=== PATIENT | female | born 1930 | race Caucasian/White ===

== ENCOUNTER 2017-09-18 21:43 | Inpatient (IN) | payer MEDICARE, MEDICAID ==
--- NOTE | 2017-09-18 22:09 | ED Physician Chart ---
ED Chief Complaint/HPI - Patient Information Date Seen:: 09/18/17 Time Seen:: 21:40 Chief Complaint:: Agitation History of Present Illness:: onset x 3 days of agitaation and aggressive behavior; no report of trauma, SIs, H/As, S/T, neck pain, C/P, SOB, Abd. pain, A/N/V/D/C, fever, chills, or urinary s/s Historian:: Patient, EMS Review:: Nurse's Note Reviewed, Old Chart Reviewed, EMS run form Reviewed ED Review of Systems - Review of Systems General/Constitutional: No fever, No chills, No weight loss, No weakness, No diaphoresis, No edema, No loss of appetite Skin: No skin lesions, No rash, No bruising Head: No headache, No light-headedness Eyes: No loss of vision, No pain, No diplopia ENT: No earache, No nasal drainage, No sore throat, No tinnitus Neck: No neck pain, No swelling, No thyromegaly, No stiffness, No mass noted Cardio Vascular: No chest pain, No palpitations, No PND, No orthopnea, No edema Pulmonary: No SOB, No cough, No sputum, No wheezing GI: No nausea, No vomiting, No diarrhea, No pain, No melena, No hematochezia, No constipation, No hematemesis G/U: No dysuria, No frequency, No hematuria, No nacturia Pass Worker: No vaginal discharge, No abnormal vaginal bleed, No contraction Musculoskeletal: No bone or joint pain, No back pain, No muscle pain Endocrine: No polyuria, No polydipsia Psychiatric: Prior psych history, Depression, Anxiety, No suicidal ideation, No homicidal ideation, No auditory hallucination, No visual hallucination Hematopoietic: No bruising, No lymphadenopathy Allergic/Immuno: No urticaria, No angioedema Neurological: No syncope, No focal symptoms, No weakness, No paresthesia, No headache, No seizure, No dizziness, Confusion, No vertigo ED Past Medical History - Past Medical History Obtainable: Yes Past Medical History: HTN, CAD, Dyslipidemia, Dementia Family History: Diabetes Melitus, HTN Social History: Non Smoker, No Alcohol, No Drug Use, Single, Care Facility Surgical History: None Psychiatricy History: Depression, Bipolar, Dementia Medication: Reviewed Family Medical History - Family Member Mother History Unknown: Yes ED Physical Exam - Physical Examination General/Constitutional: Awake, Well-developed, well-nourished, Alert, No distress, GCS 15, Non-toxic appearing, Ambulatory Head: Atraumatic Eyes: Lids, conjuctiva normal, PERRL, EOMI Skin: Nl inspection, No rash, No skin lesions, No ecchymosis, Well hydrated, No lymphadenopathy ENMT: External ears, nose nl, TM canals nl, Nasal exam nl, Lips, teeth, gums nl , Oropharynx nl, Tonsils nl Neck: Nontender, Full ROM w/o pain, No JVD, No nuchal rigidity, No bruit, No mass, No stridor Respiratory: Nl effort/Exclusion, Clear to Auscultation, No Wheeze/Rhonchi/Rales Cardio Vascular: RRR, No murmur, gallop, rubs, NL S1 S2, Carotid/Femoral/Distal pulses equal bilaterally GI: No tenderness/rebounding/guarding, No organomegaly, No hernia, Normal BS's, Nondistended, No mass/bruits, No McBurney tenderness : No CVA tenderness Extremities: No tenderness or effusion, Full ROM, normal strength in all extremities, No edema, Normal digits & nails Neuro/Psych: Alert/oriented, DTR's symmetric, Normal sensory exam, Normal motor strength, Judgement/insight normal, Mood normal, Normal gait, No focal deficits Other Neuro/Psych comments:: + Psychomotor Agitation; no SIs; Mood/Affect: Stable Misc: Normal back, No paraspinal tenderness ED Labs/Radiology/EKG Results - Lab Results Comments:: K+: 3.4 - EKG Interpretations EKG Time:: 22:11 Rate & Rhythm: 63; NSR Comments:: LBBB; non-specific st-t changes ED Septic Shock - . Is Septic Shock (SBP<90, OR Lactate>4 mmol\L) present?: No ED Reassessment (Disposition) - Reassessment Reassessment Condition:: Improved - Diagnosis Diagnosis:: Hypokalemia; Medical Clearance; Agitation; Bipolar Disorder; Psychosis - Aftercare/Follow up Instructions Aftercare/Follow-Up Instructions:: Counseled pt regarding lab results/diagnosis & need follow up, Counseled pt & family regarding lab results/diagnosis & need follow up - Patient Disposition Discharge/Transfer:: Acute Care w/in this hosp Admitted to:: [facility] Condition at Disposition:: Stable, Improved
[2017-09-18 23:12] LABS: % BASOPHILS 0.2 % (0.0-2.0); % EOSINOPHILS 2.4 % (0.0-5.0); % LYMPHOCYTES 33.1 % (20.0-50.0); % MONOCYTES 11.6 % (2.0-10.0); % NEUTROPHILS 52.7 % (40.0-80.0); EOSINOPHILE ABSOLUTE 0.1 Th/cmm (0.1-0.4); HEMATOCRIT 36.8 % (41.0-60); HEMOGLOBIN 12.5 gm/dL (12-16); LYMPHOCYTE ABSOLUTE 1.6 Th/cmm (1.5-3.0); MEAN CELL VOLUME 89.1 fl (81-100); MEAN CORPUSCULAR HEMOGLOBIN 30.1 pg (27.0-31.0); MEAN CORPUSCULAR HGB CONC 33.8 pg (28.0-36.0); MONOCYTE ABSOLUTE 0.5 Th/cmm (0.3-1.0); NEUTROPHILE ABSOLUTE 2.5 Th/cmm (1.8-8.0); PLATELET COUNT 201 Th/cmm (150-400); RED BLOOD COUNT 4.13 Mil/cmm (3.80-5.20); RED CELL DISTRIBUTION WIDTH 14.1 % (11.5-20.0); WHITE BLOOD COUNT 4.7 Th/cmm (4.8-10.8)
[2017-09-18 23:36] LABS: ACETAMINOPHEN < 10.0 ug/mL (10.0-30.0); ALB/GLOB RATIO 1.8 (1.0-1.8); ALBUMIN 3.8 gm/dL (3.7-5.3); ALKALINE PHOSPHATASE 116 U/L (34-104); ANION GAP 11.8 (7.0-16.0); BILIRUBIN,TOTAL 0.7 mg/dL (0.3-1.0); BUN - UREA NITROGEN 22 mg/dL (7-25); CARBON DIOXIDE 26.6 mEq/L (21.0-31.0); CHLORIDE 107 mEq/L (98-107); CHOLESTEROL 165 mg/dL (<200); CREATININE - SERUM 0.6 mg/dL (0.6-1.2); GLUCOSE 103 mg/dL (70-105); HDL -HIGH DENSITY LIPOPROTEIN 75 mg/dL (23-92); POTASSIUM SERUM 3.4 mEq/L (3.5-5.1); SALICYLATES (ASPIRIN) < 25.0 mg/L (30.0-100.0); SGOT 11 U/L (13-39); SGPT/ALT 3 U/L (7-52); SODIUM SERUM 142 mEq/L (136-145); TOTAL PROTEIN,SERUM 5.9 gm/dL (6.0-8.3); TRIGLYCERIDES 37 mg/dL (<150)
[2017-09-18] MEDS ORDERED: Potassium Chloride 20 mEq ER Tab PO ONE (23:42)
[2017-09-19 00:48] VITALS: BP 134/64
[2017-09-19] MEDS ORDERED: Magnesium Hydroxide (MOM) 30 mL UDC PO PRN (00:57)
[2017-09-19] MEDS ORDERED: Non-Formulary Item 1 EA (Ipratropium Bromide [Atrovent Hfa] 2 PUFF) INH PRN (00:57)
[2017-09-19 19:52] LABS: A1C % 5.1 % (4.0-6.0)
[2017-09-19] MEDS ORDERED: PIMAVANSERIN TARTRATE PO SCH (21:00)
--- NOTE | 2017-09-20 05:55 | Psychosocial Evaluation ---
DATE OF SERVICE: 09/18/2017 IDENTIFYING DATA: The patient is an 86-year-old woman, resident of [facility]. Information obtained directly interviewing the patient as well as reviewing the admission paper. JUSTIFICATION OF HOSPITALIZATION: The patient has been admitted over here for acute confusion and striking out, refusing to follow the directions and hence the patient has been referred over here for stabilization. Chart is reviewed. The patient is interviewed. The patient is stating that she has been diagnosed to have Parkinson's and has been having the deformities of her hand and she states that there is no reason for her to hurt anyone and she could not figure it out that she is in the hospital now. PAST PSYCHIATRIC HISTORY: Details are not known. MEDICAL HISTORY AND PHYSICAL EXAMINATION: Requested done by Dr. Juan. SUBSTANCE ABUSE HISTORY: None. STRENGTH AND ASSETS: The patient is motivated. MENTAL STATUS EXAMINATION: The patient is an 86-year-old woman, thin built, cooperative. Eye contact is fair. Mood is noted to be depressed. Affect is constricted. Coping skills are noted to be poor. Insight and judgment are noted to be impaired. Impulse control is a little bit poor. The patient is downplaying her agitation. The patient is, however, feeling depressed because of these deformities that she has been having and need to cope with them. The patient is stating that she is in pain and needs some medications to help her with the pain at this time. The patient is alert and oriented x 3 and the patient is fully aware that she is in the hospital. Short term memory is noted to be poor. 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 DIAGNOSTIC IMPRESSION: AXIS I: Major depressive disorder, recurrent and moderate. AXIS II: None. AXIS III: As per Dr. Juan. IMMEDIATE TREATMENT PLAN: The patient is going to be observed on inpatient unit for supportive psychotherapy. The patient is going to be encouraged to participate in the groups and verbalize the concerns. Once stabilized, the patient is going to be discharged to [facility]. The patient is going to be continued on her Celexa at this time. JOB# [id number]
[2017-09-20] MEDS ORDERED: Ipratropium Neb 0.5 mg/2.5 mL UD HHN PRN ×2 (11:29→11:45)
--- NOTE | 2017-09-20 23:49 | History & Physical ---
ADMIT DATE: 09/20/2017 REASON FOR ADMISSION: Psychiatric disorder. HISTORY OF PRESENT ILLNESS: This is an 86-year-old female with underlying history of hypertension, seizure disorder, hyperlipidemia, Parkinson's disease, who lives at retirement facility, was admitted to Geropsych Unit for underlying psychiatric illness by Dr. Baxter. Dr. Baxter requested medical H and P on this patient. PAST MEDICAL HISTORY: As per HPI. PAST SURGICAL HISTORY: No significant past surgical history reported. SOCIAL HISTORY: Lives in retirement. No reported alcohol, tobacco or street drug use. CURRENT MEDICATIONS: On Ambien, tramadol, senna, Nitrostat, milk of mag, Ativan, Keppra, DuoNeb, Lopid, Colace, Celexa, Lotensin, carbidopa/levodopa, vitamin C, Norvasc and amantadine. REVIEW OF SYSTEMS: The patient denies any fever, no chills, no nausea, no vomiting, no headache, no diarrhea, no abdominal pain, no constipation, no diarrhea, no hematemesis, no melena. PHYSICAL EXAMINATION: VITAL SIGNS: Temperature 98.5, pulse 75, respirations 19, blood pressure 118/67, 99% on room air. Pain 0/10. GENERAL APPEARANCE: The patient does not seem to be in acute distress. CARDIOVASCULAR: S1 and S2 normal. LUNGS: Clear to auscultation bilaterally. ABDOMEN: Soft, nontender. NEUROLOGIC: Awake, but confused. Moves all extremities. Both hand contracture noted. AVAILABLE LABORATORY DATA: Has been reviewed. ASSESSMENT: 1. Hypertension. 2. Hyperlipidemia. 3. Parkinson's disease. 4. Seizure disorder. 5. Mental disorder. PLAN: The patient will be continued on current treatment plan. Psych evaluation per psychiatrist. Monitor vitals. ____ aspiration precautions. Plan of care discussed with nursing staff. Thank you Dr. Baxter for allowing me to participate in the care of this patient. JOB# [id number]
--- NOTE | 2017-09-21 08:53 | Progress Notes ---
DATE: 09/20/2017 PSYCHIATRIC PROGRESS NOTE SUBJECTIVE: Staff was spoken to. The patient is interviewed. Mood is noted to be depressed. Affect is constricted. Coping skills are noted to be poor. The patient is isolative and withdrawn. Insight and judgment at this time are noted to be still impaired. Impulse control is noted to be limited. The patient has been living herself after being in here and she states that she has never tried to hurt anyone, could not feel it out why she has to be here. ASSESSMENT: The patient is depressed. PLAN: To continue the patient with supportive therapy. Encouraged the patient to verbalize the concerns rather than to act out. JOB# [id number]
--- NOTE | 2017-09-21 16:41 | Progress Notes ---
DATE: 09/21/2017 SUBJECTIVE: Staff was spoken to. The patient is interviewed. Mood is very depressed. Affect is constricted. The patient is stating that she would not feel it out that she ended up in the hospital like this and she states that she has been having pain in her upper extremities. Coping skills are noted to be poor at this time. No side effects to the medications are noted. ASSESSMENT: The patient is still depressed. PLAN: To continue the patient with the Celexa and follow her up with supportive therapy. [facility]# [id number]
--- NOTE | 2017-09-22 16:13 | Progress Notes ---
DATE: 09/22/2017 SUBJECTIVE: Staff was spoken to. The patient is interviewed. Mood is noted to be anxious and depressed. Affect is constricted. Coping skills are noted to be still poor. The patient feels frustrated. The patient has been having multiple deformities in her upper extremities. ASSESSMENT: The patient is still depressed. PLAN: To continue the patient with the supportive therapy and followup. [facility]# [id number]
--- NOTE | 2017-09-22 18:00 | Consultation ---
DATE OF CONSULTATION: 09/20/2017 REQUESTING PHYSICIAN: Rema Baxter M.D. TYPE OF CONSULTATION: Psychology. HISTORY OF PRESENT ILLNESS: The patient is an 86-year-old female. The patient is a resident of [facility]. The patient is being admitted for confusion and poor behavioral re-directability. The staff at the patient's facility reports that she had been striking out at staff members. The following is by review of the medical record and by the patient's self report. Upon interview, the patient states that she has Parkinson's disease and that she believes her hands are deformed secondary to this illness. The patient presents as confused. She denied any suicidal ideation, plan, or intention. PAST MEDICAL HISTORY: Please see history and physical by Dr. Juan. PAST PSYCHIATRIC HISTORY: Unavailable at this time. SUBSTANCE ABUSE HISTORY: None. CURRENT MEDICATIONS: Please see admission medication reconciliation. PSYCHOSOCIAL HISTORY: The patient is a resident of [facility]. The patient did not answer questions about family history or occupational history or educational history: The patient did not answer questions about abuse history or any legal problems or mormonism affiliation. MENTAL STATUS EXAMINATION: The patient appears to be her stated age, but presents as frail. The patient's attitude is cooperative. Eye contact is fair. Speech is spontaneous. Mood is depressed. Affect is mood congruent. The patient reports that she feels depressed due to her medical condition and the deformities in her hands. The patient denied any suicidal ideation, plan or intention, or any wish to . The patient denied any hallucinations or delusions. Impulse control is poor. Sensorium is alert and oriented to person, place, and date. The patient continued to complain about pain throughout the clinical interview. The patient was unable to recall any of the 3 items given to her after several minutes. Short term memory is impaired. Concentration is fair to poor. Long-term memory seems to be fair. The patient did not participate in the interpretation of proverbs. Insight is fair to poor. Judgment is compromised. DIAGNOSTIC IMPRESSION: AXIS I: Major depressive disorder, recurrent, moderate. AXIS II: Deferred. AXIS III: Please see history and physical by Dr. Juan. PLAN: The patient has been seen by Dr. Baxter for psychiatric evaluation and for the management of the patient's psychotropic medications. We will provide supportive psychotherapy. We will provide cognitive behavioral therapy to decrease the patient's depression and encourage her to verbalize her concerns. We will provide coping strategies for phase of life issues as well as adjustment to the patient's current concerns about her medical condition. Thank you Dr. Baxter for this consult and the opportunity to participate in this patient's care. JOB# [id number] [facility]
--- NOTE | 2017-09-23 22:00 | General Progress Note ---
Subjective - Review of Systems Service Date: 09/23/17 Subjective: Patient seen and examined c/o bilateral hand pain Objective - Results Result Diagrams: 09/18/17 22:51 09/18/17 22:51 Recent Labs: Laboratory Last Values WBC 4.7 Th/cmm (4.8-10.8) L 09/18/17 22:51 RBC 4.13 Mil/cmm (3.80-5.20) 09/18/17 22:51 Hgb 12.5 gm/dL (12-16) 09/18/17 22:51 Hct 36.8 % (41.0-60) L 09/18/17 22:51 MCV 89.1 fl (81-100) 09/18/17 22:51 MCH 30.1 pg (27.0-31.0) 09/18/17 22:51 MCHC Differential 33.8 pg (28.0-36.0) 09/18/17 22:51 RDW 14.1 % (11.5-20.0) 09/18/17 22:51 Plt Count 201 Th/cmm (150-400) 09/18/17 22:51 MPV 9.0 fl 09/18/17 22:51 Neutrophils % 52.7 % (40.0-80.0) 09/18/17 22:51 Lymphocytes % 33.1 % (20.0-50.0) 09/18/17 22:51 Monocytes % 11.6 % (2.0-10.0) H 09/18/17 22:51 Eosinophils % 2.4 % (0.0-5.0) 09/18/17 22:51 Basophils % 0.2 % (0.0-2.0) 09/18/17 22:51 Sodium 142 mEq/L (136-145) 09/18/17 22:51 Potassium 3.4 mEq/L (3.5-5.1) L 09/18/17 22:51 Chloride 107 mEq/L (98-107) 09/18/17 22:51 Carbon Dioxide 26.6 mEq/L (21.0-31.0) 09/18/17 22:51 Anion Gap 11.8 (7.0-16.0) 09/18/17 22:51 BUN 22 mg/dL (7-25) 09/18/17 22:51 Creatinine 0.6 mg/dL (0.6-1.2) 09/18/17 22:51 Est GFR ( Amer) TNP 09/18/17 22:51 Est GFR (Non-Af Amer) TNP 09/18/17 22:51 BUN/Creatinine Ratio 36.7 09/18/17 22:51 Glucose 103 mg/dL (70-105) 09/18/17 22:51 Hemoglobin A1c % 5.1 % (4.0-6.0) 09/18/17 22:51 Calcium 10.0 mg/dL (8.6-10.3) 09/18/17 22:51 Total Bilirubin 0.7 mg/dL (0.3-1.0) 09/18/17 22:51 AST 11 U/L (13-39) L 09/18/17 22:51 ALT 3 U/L (7-52) L 09/18/17 22:51 Alkaline Phosphatase 116 U/L (34-104) H 09/18/17 22:51 Total Protein 5.9 gm/dL (6.0-8.3) L 09/18/17 22:51 Albumin 3.8 gm/dL (3.7-5.3) 09/18/17 22: Globulin 2.1 gm/dL 09/18/17 22:51 Albumin/Globulin Ratio 1.8 (1.0-1.8) 09/18/17 22:51 Triglycerides 37 mg/dL (<150) 09/18/17 22:51 Cholesterol 165 mg/dL (<200) 09/18/17 22:51 LDL Cholesterol Direct 76 mg/dL (75-193) 09/18/17 22:51 HDL Cholesterol 75 mg/dL (23-92) 09/18/17 22:51 TSH 1.83 uIU/ml (0.34-5.60) 09/18/17 22:51 Salicylates < 25.0 mg/L (30.0-100.0) L 09/18/17 22:51 Acetaminophen < 10.0 ug/mL (10.0-30.0) L 09/18/17 22:51 Ethyl Alcohol < 10 mg/dL (0-10) 09/18/17 22:51 RPR NONREACTIVE (NONREACTIVE) 09/18/17 22:51 - Physical Exam Vitals and I&O: Vital Signs Temp 96.6 F 09/23/17 20:44 Pulse 66 09/23/17 20:44 Resp 18 09/23/17 20:44 BP 132/58 09/23/17 20:44 Pulse Ox 97 09/23/17 20:44 Intake & Output 09/23/17 09/23/17 09/24/17 06:59 18:59 06:59 Intake Total 240 850 120 Balance 240 850 120 Intake: Oral 240 850 120 Other: # Voids 1 4 1 # Bowel Movements 1 Active Medications: Current Medications Amantadine HCl (Symmetrel) 100 mg PO BID RACHEAL Stop: 11/18/17 08:59 Last Admin: 09/23/17 17:47 Dose: 100 mg Amlodipine Besylate (Norvasc) 10 mg PO DAILY RACHEAL Stop: 11/18/17 08:59 Last Admin: 09/23/17 10:42 Dose: 10 mg Ascorbic Acid (Vitamin C) 500 mg PO DAILY RACHEAL Stop: 11/18/17 08:59 Last Admin: 09/23/17 10:43 Dose: 500 mg Benazepril HCl (Lotensin) 20 mg PO BID RACHEAL Stop: 11/18/17 08:59 Last Admin: 09/23/17 17:48 Dose: 20 mg Carbidopa/Levodopa (Sinemet 25mg-100 Mg) 2 tab PO QID RACHEAL Stop: 11/18/17 08:59 Last Admin: 09/23/17 21:06 Dose: 2 tab Citalopram Hydrobromide (Celexa) 10 mg PO DAILY RACHEAL Stop: 11/18/17 08:59 Last Admin: 09/23/17 10:43 Dose: 10 mg Docusate Sodium (Colace) 100 mg PO BID RACHEAL Stop: 11/18/17 08:59 Last Admin: 09/23/17 17:47 Dose: 100 mg Gemfibrozil (Lopid) 600 [facility] PO [facility]AC [facility] Stop: 11/18/17 07:29 Last Admin: 09/23/17 17:49 Dose: Not Given Ipratropium [place] (Atrovent Neb 0.5mg/2.5ml) 0.5 mg HHN Q6H PRN PRN Reason: Shortness of Breath Stop: 11/19/17 11:28 Levetiracetam (Keppra) 500 mg PO Q12HR RACHEAL Stop: 11/18/17 08:59 Last Admin: 09/23/17 21:06 Dose: 500 mg Lorazepam (Ativan) 0.5 mg PO Q4HR PRN; Protocol PRN Reason: Anxiety Stop: 10/19/17 00:48 Magnesium Hydroxide (Milk Of Magnesia) 30 ml PO HS PRN PRN Reason: Constipation Stop: 11/18/17 00:56 Nitroglycerin (Nitrostat) 0.4 mg SL TID PRN PRN Reason: Chest Pain Stop: 11/18/17 00:56 Senna (Senna) 8.6 mg PO BID RACHEAL Stop: 11/18/17 08:59 Last Admin: 09/23/17 17:48 Dose: Not Given Tramadol HCl (Ultram) 50 mg PO Q6H PRN PRN Reason: Pain (Moderate) Stop: 11/18/17 00:56 Last Admin: 09/22/17 09:07 Dose: 50 mg Zolpidem Tartrate (Ambien) 5 mg PO HS PRN PRN Reason: Insomnia Stop: 11/18/17 00:48 Last Admin: 09/21/17 21:01 Dose: 5 mg Cardiovascular: Regular rate Lungs: Clear to auscultation Assessment/Plan - Assessment Assessment: Parkinson disease Bilateral hand vargas Bilateral hand contracture HTN Hyperlipidemia Dementia Seizure disorder - Plan Plan: Pain meds as needed Continue current treatment Monitor vitals Psych follow up Nutritional Asmnt/Malnutr-PDOC - Dietary Evaluation Malnutrition Findings (Please click <Entered> for more info): Nutritional Asmnt/Malnutrition Start: 09/23/17 17: 09 Text: Status: Complete Freq: Document 09/23/17 17:09 LATIA (Rec: 09/23/17 17:14 JACLYN [email or web address]) Nutritional Asmnt/Malnutrition Patient General Information Nutritional Screening Moderate Risk Diagnosis psychosis Pertinent Medical Hx/Surgical Hx HTn, CAD, hyslipidemia, dementia, depression, bipolar Subjective Information Per EMR PO intake 75% Current Diet Order/ Nutrition Support pureed Pertinent Medications vit C, colace, senna Pertinent Labs 09/18 K 3.4 Nutritional Hx/Data Height 1.57 m Height (Calculated Centimeters) 157.5 Current Weight (lbs) 49.895 kg Weight (Calculated Kilograms) 49.9 Weight (Calculated Grams) 93978.2 Villalba Body Weight 110 % Villalba Body Weight 100 Body Mass Index (BMI) 20.1 Weight Status Approriate GI Symptoms GI Symptoms None Last BM 09/22 Difficult in: None Skin Integrity/Comment: dryness Current %PO Good (75-100%) Estimated Nutritional Goals BEE in Kcals: Using Current wt Calories/Kcals/Kg 25-30 Kcals Calculated 6995-3512 Protein: Using Current wt Protein g/k-1.2 Protein Calculated 50-60 Fluid: ml 1250-1500ml (1ml/kcal) Nutritional Problem No current Nutrition Prob Problem N/A Intervention/Recommendation Comments 1. Continue with current diet as ordered. 2. Monitor PO intake, wt, labs and skin integrity 3. F/U as low risk in 7 days, 09/30 Expected Outcomes/Goals Expected Outcomes/Goals 1. PO intake to meet at least 75% of nutritional needs. 2. Wt stability, skin to remain intact, labs to approach WNL.
--- NOTE | 2017-09-24 03:32 | Progress Notes ---
DATE: 09/23/2017 SUBJECTIVE: Staff was spoken to. The patient is interviewed. Mood is little bit depressed. Affect is constricted. The patient is isolative and withdrawn. Coping skills are noted to be very poor at this time. Sleep and appetite also noted to be very poor. The patient has been having difficult time to cope with the stress. No side effects to the medications are noted. The patient has been mainly focused on her pain. ASSESSMENT: The patient is still depressed. PLAN: To continue the patient with the supportive therapy. I encouraged the patient to verbalize the concerns rather than to act out. JOB# [id number]
--- NOTE | 2017-09-24 19:39 | Progress Notes ---
DATE: 09/24/2017 SUBJECTIVE: Staff was spoken to. The patient is interviewed. Mood is noted to be depressed. Affect is constricted. The patient is isolative and withdrawn. Mood is noted to be still depressed. Her sleep is noted to be improving. No side effects to the medications are noted. The patient, however, has been having difficult time with the pain. The patient is currently on tramadol on a p.r.n. basis. The patient is also receiving the citalopram 10 mg. ASSESSMENT: The patient is still depressed. PLAN: To continue the patient with the supportive therapy, encouraged the patient to verbalize the concerns rather than to act out. JOB# [id number]
--- NOTE | 2017-09-25 19:24 | Progress Notes ---
DATE: 09/25/2017 SUBJECTIVE: Staff was spoken to. The patient is interviewed. Mood is noted to be anxious. Affect is appropriate. The patient is stating that she has been doing fairly well and she has been able to sleep. No aggressive behavior is reported by the staff members. The patient is currently on citalopram 10 mg and has been able to tolerate the medication. The patient has been getting the Haldol for her pain and is able to tolerate. ASSESSMENT: The patient is stabilizing. PLAN: To closely monitor the patient for aggressive behavior and possibly discharge the patient for followup on outpatient basis tomorrow. JOB# [id number]
--- NOTE | 2017-09-26 21:35 | General Progress Note ---
Subjective - Review of Systems Service Date: 09/26/17 Subjective: Patient seen and examined denied any medical complaints Objective - Results Result Diagrams: 09/18/17 22:51 09/18/17 22:51 Recent Labs: Laboratory Last Values WBC 4.7 Th/cmm (4.8-10.8) L 09/18/17 22:51 RBC 4.13 Mil/cmm (3.80-5.20) 09/18/17 22:51 Hgb 12.5 gm/dL (12-16) 09/18/17 22:51 Hct 36.8 % (41.0-60) L 09/18/17 22:51 MCV 89.1 fl (81-100) 09/18/17 22:51 MCH 30.1 pg (27.0-31.0) 09/18/17 22:51 MCHC Differential 33.8 pg (28.0-36.0) 09/18/17 22:51 RDW 14.1 % (11.5-20.0) 09/18/17 22:51 Plt Count 201 Th/cmm (150-400) 09/18/17 22:51 MPV 9.0 fl 09/18/17 22:51 Neutrophils % 52.7 % (40.0-80.0) 09/18/17 22:51 Lymphocytes % 33.1 % (20.0-50.0) 09/18/17 22:51 Monocytes % 11.6 % (2.0-10.0) H 09/18/17 22:51 Eosinophils % 2.4 % (0.0-5.0) 09/18/17 22:51 Basophils % 0.2 % (0.0-2.0) 09/18/17 22:51 Sodium 142 mEq/L (136-145) 09/18/17 22:51 Potassium 3.4 mEq/L (3.5-5.1) L 09/18/17 22:51 Chloride 107 mEq/L (98-107) 09/18/17 22:51 Carbon Dioxide 26.6 mEq/L (21.0-31.0) 09/18/17 22:51 Anion Gap 11.8 (7.0-16.0) 09/18/17 22:51 BUN 22 mg/dL (7-25) 09/18/17 22:51 Creatinine 0.6 mg/dL (0.6-1.2) 09/18/17 22:51 Est GFR ( Amer) TNP 09/18/17 22:51 Est GFR (Non-Af Amer) TNP 09/18/17 22:51 BUN/Creatinine Ratio 36.7 09/18/17 22:51 Glucose 103 mg/dL (70-105) 09/18/17 22:51 Hemoglobin A1c % 5.1 % (4.0-6.0) 09/18/17 22:51 Calcium 10.0 mg/dL (8.6-10.3) 09/18/17 22:51 Total Bilirubin 0.7 mg/dL (0.3-1.0) 09/18/17 22:51 AST 11 U/L (13-39) L 09/18/17 22:51 ALT 3 U/L (7-52) L 09/18/17 22:51 Alkaline Phosphatase 116 U/L (34-104) H 09/18/17 22:51 Total Protein 5.9 gm/dL (6.0-8.3) L 09/18/17 22:51 Albumin 3.8 gm/dL (3.7-5.3) 09/18/17 22:51 Globulin 2.1 gm/dL 09/18/17 22:51 Albumin/Globulin Ratio 1.8 (1.0-1.8) 09/18/17 22:51 Triglycerides 37 mg/dL (<150) 09/18/17 22:51 Cholesterol 165 mg/dL (<200) 09/18/17 22:51 LDL Cholesterol Direct 76 mg/dL (75-193) 09/18/17 22:51 HDL Cholesterol 75 mg/dL (23-92) 09/18/17 22:51 TSH 1.83 uIU/ml (0.34-5.60) 09/18/17 22:51 Salicylates < 25.0 mg/L (30.0-100.0) L 09/18/17 22:51 Acetaminophen < 10.0 ug/mL (10.0-30.0) L 09/18/17 22:51 Ethyl Alcohol < 10 mg/dL (0-10) 09/18/17 22:51 RPR NONREACTIVE (NONREACTIVE) 09/18/17 22:51 - Physical Exam Vitals and I&O: Vital Signs Temp 97.6 F 09/26/17 20:00 Pulse 74 09/26/17 20:00 Resp 20 09/26/17 20:00 BP 138/74 09/26/17 20:00 Pulse Ox 97 09/26/17 20:00 Intake & Output 09/26/17 09/26/17 09/27/17 06:59 18:59 06:59 Intake Total 120 240 Balance 120 240 Intake: Oral 120 240 Other: # Voids 3 3 Active Medications: Current Medications Amantadine HCl (Symmetrel) 100 mg PO BID RACHEAL Stop: 11/18/17 08:59 Last Admin: 09/26/17 17:10 Dose: 100 mg Amlodipine Besylate (Norvasc) 10 mg PO DAILY [facility]HEAL Stop: 11/18/17 08:59 Last Admin: 09/26/17 08:53 Dose: 10 mg Ascorbic Acid (Vitamin C) 500 mg PO DAILY [facility] Stop: 11/18/17 08:59 Last Admin: 09/26/17 08:54 Dose: 500 mg Benazepril HCl (Lotensin) 20 mg PO BID RACHEAL Stop: 11/18/17 08:59 Last Admin: 09/26/17 17:10 Dose: 20 mg Carbidopa/Levodopa (Sinemet 25mg-100 Mg) 2 tab PO QID RACHEAL Stop: 11/18/17 08:59 Last Admin: 09/26/17 20:18 Dose: 2 tab Citalopram Hydrobromide (Celexa) 20 mg PO DAILY [facility] Stop: 11/25/17 19:16 Docusate Sodium (Colace) 100 mg PO BID RACHEAL Stop: 11/18/17 08:59 Last Admin: 09/26/17 17:11 Dose: 100 mg Gemfibrozil (Lopid) 600 mg PO BIDAC [facility] Stop: 11/18/17 07:29 Last Admin: 09/26/17 17:11 Dose: 600 mg Ipratropium [place] (Atrovent Neb 0.5mg/2.5ml) 0.5 mg HHN Q6H PRN PRN Reason: Shortness of Breath Stop: 11/19/17 11:28 Last Admin: 09/26/17 00:07 Dose: 0.5 mg Levetiracetam (Keppra) 500 mg PO Q12HR RACHEAL Stop: 11/18/17 08:59 Last Admin: 09/26/17 20:18 Dose: 500 mg Lorazepam (Ativan) 0.5 mg PO Q4HR PRN; Protocol PRN Reason: Anxiety Stop: 10/19/17 00:48 Magnesium Hydroxide (Milk Of Magnesia) 30 ml PO HS PRN PRN Reason: Constipation Stop: 11/18/17 00:56 Nitroglycerin (Nitrostat) 0.4 mg SL TID PRN PRN Reason: Chest Pain Stop: 11/18/17 00:56 Last Admin: 09/25/17 23:52 Dose: 0.4 mg Senna (Senna) 8.6 mg PO BID RACHEAL Stop: 11/18/17 08:59 Last Admin: 09/26/17 17:10 Dose: 8.6 mg Tramadol HCl (Ultram) 50 mg PO Q6H PRN PRN Reason: Pain (Moderate) Stop: 11/18/17 00:56 Last Admin: 09/26/17 00:38 Dose: 50 mg Zolpidem Tartrate (Ambien) 5 mg PO HS PRN PRN Reason: Insomnia Stop: 11/18/17 00:48 Last Admin: 09/21/17 21:01 Dose: 5 mg Cardiovascular: Regular rate Lungs: Clear to auscultation Assessment/Plan - Assessment Assessment: Parkinson disease Bilateral hand vargas Bilateral hand contracture HTN Hyperlipidemia Dementia Seizure disorder - Plan Plan: Pain meds as needed Continue current treatment Monitor vitals Psych follow up Nutritional Asmnt/Malnutr-PDOC - Dietary Evaluation Malnutrition Findings (Please click <Entered> for more info): Nutritional Asmnt/Malnutrition Start: 09/23/17 17: 09 Text: Status: Complete Freq: Document 09/23/17 17:09 LATIA (Rec: 09/23/17 17:14 [email or web address]) Nutritional Asmnt/Malnutrition Patient General Information Nutritional Screening Moderate Risk Diagnosis psychosis Pertinent Medical Hx/Surgical Hx HTn, CAD, hyslipidemia, dementia, depression, bipolar Subjective Information Per EMR PO intake 75% Current Diet Order/ Nutrition Support pureed Pertinent Medications vit C, colace, senna Pertinent Labs 09/18 K 3.4 Nutritional Hx/Data Height 1.57 m Height (Calculated Centimeters) 157.5 Current Weight (lbs) 49.895 kg Weight (Calculated Kilograms) 49.9 Weight (Calculated Grams) 41809.2 [place] Body Weight 110 % [place] Body Weight 100 Body Mass Index (BMI) 20.1 Weight Status Approriate GI Symptoms GI Symptoms None Last BM 4/ Difficult in: None Skin Integrity/Comment: dryness Current %PO Good (75-100%) Estimated Nutritional Goals BEE in Kcals: Using Current wt Calories/Kcals/Kg 25-30 Kcals Calculated 2220-1617 Protein: Using Current wt Protein g/k-1.2 Protein Calculated 50-60 Fluid: ml 1250-1500ml (1ml/kcal) Nutritional Problem No current Nutrition Prob Problem N/A Intervention/Recommendation Comments 1. Continue with current diet as ordered. 2. Monitor PO intake, wt, labs and skin integrity 3. F/U as low risk in 7 days, 09/30 Expected Outcomes/Goals Expected Outcomes/Goals 1. PO intake to meet at least 75% of nutritional needs. 2. Wt stability, skin to remain intact, labs to approach WNL.
--- NOTE | 2017-09-27 02:28 | Progress Notes ---
DATE: 09/26/2017 SUBJECTIVE: Staff was spoken to. The patient is interviewed. Mood is noted to be irritable. Affect is constricted. The patient is still depressed. The patient's coping skills are noted to be poor. The patient has been stating that she is too depressed with the pain and the patient is isolative and withdrawn. ASSESSMENT: The patient is still depressed. PLAN: To increase the dose on the citalopram to 20 mg and follow the patient with the supportive therapy. JOB# [id number]
--- NOTE | 2017-09-27 21:38 | Discharge Summary ---
DATE OF DISCHARGE: 09/27/2017 IDENTIFYING DATA: The patient is an 86-year-old woman, resident of [facility]. JUSTIFICATION OF HOSPITALIZATION: The patient is admitted here for acute agitation and confusion. DIAGNOSES AT THE TIME OF ADMISSION: AXIS I. Major depressive disorder, recurrent and moderate. AXIS II: None. AXIS III: As per Dr. Juan. HISTORY OF PRESENT ILLNESS: Please refer to 09/19/2017 dictation done by me. Physical examination at the time of admission was done by Dr. Lebron Juan and she is noted to be significant for hypertension, hyperlipidemia, Parkinson's disease and seizure disorder. Blood work that has been requested and has been reviewed by Dr. Juan. HOSPITAL COURSE AND RESPONSE TO TREATMENT: The patient has been continued on her Celexa, which was gradually increased to 20 mg and the patient has been closely monitored. The patient started to do fairly well. No side effects to the medications are noted. The patient has been finally discharged to [facility] with recommendation that she is going to be seeking treatment on an outpatient basis. MENTAL STATUS EXAMINATION: At the time of discharge, the patient's mood is noted to be anxious. Affect is appropriate. Not suicidal or homicidal. Insight and judgment are improving. Impulse control seems to be fair. No side effects to the medications are noted at the time of discharge. CONDITION: At the time of discharge noted to be stable. DIAGNOSES AT THE TIME OF DISCHARGE: AXIS I: Major depressive disorder, recurrent and moderate. AXIS II: None. AXIS III: Hypertension, hyperlipidemia, seizure disorder and Parkinson's disease. AFTERCARE PLAN: The patient is discharged to [facility] for further care. JOB# [id number]
== END 2017-09-27 17:10 | DRG 885 ==
LOC: ER 21:43 → GERO 23:45
PROVIDERS: ADMIT Psychiatry & Neurology Psychiatry; ATTEND Psychiatry & Neurology Psychiatry
DX: F33.1 Major depressive disorder, recurrent, moderate (principal); F02.81 Dementia in other diseases classified elsewhere, unspecified severity, with behavioral disturbance; Z66 Do not resuscitate; I10 Essential (primary) hypertension; E78.5 Hyperlipidemia, unspecified; G20 Parkinson's disease; G40.909 Epilepsy, unspecified, not intractable, without status epilepticus; I25.10 Atherosclerotic heart disease of native coronary artery without angina pectoris; E87.6 Hypokalemia; F29 Unspecified psychosis not due to a substance or known physiological condition; M24.542 Contracture, left hand; M24.541 Contracture, right hand; Z88.0 Allergy status to penicillin; Z83.3 Family history of diabetes mellitus; Z82.49 Family history of ischemic heart disease and other diseases of the circulatory system
CPT/HCPCS: 36415-UA; 80053-TC; 80061-TC; 80320-TC; 80329-TC; 83036-90; 84443-TC; 85025-TC; 86592-TC; 90779; 93005; 94640; 94760; Z7610